=== PATIENT | female | born 1940 | race Caucasian/White ===

== ENCOUNTER 2016-08-10 05:38 | Day surgery (SDC) | payer MEDICARE, BC ==
[2016-07-28 17:34] VITALS: BMI 19.6
[2016-08-10] VITALS (16 sets, daily range): BP systolic 119–145; BP diastolic 48–65; PULSE 46–65; RESP 12–23; Ht 165.1 cm; Wt 54.1 kg
[~2016-08-10] VITALS: Ht 165.1 cm; Wt 54.1 kg
[~2016-08-10 05:38] MED LIST: ESTR2TAB PO; GABA300C PO; METO25TA7 PO; RIVA20TA PO
[2016-08-10] MEDS ORDERED: SOD CHLORIDE 0.9% 1,000 ML IV SCH (06:24)
--- NOTE | 2016-08-10 06:24 | HPN ---
Date/Time of Note Date/Time of Note DATE: 08/10/16 TIME: 06:23 Interval H&P Admission Note Pt. seen H&P reviewed: No system changes MARILIN MASON MD Aug 10, 2016 06:24
[2016-08-10] MEDS ORDERED: OXYCODONE/ACETAMINOPHEN (5/325) TAB PO PRN ×3 (06:30→09:00)
[2016-08-10] MEDS ORDERED: ONDANSETRON 4 MG INJ IV PRN ×2 (06:30→09:00)
[2016-08-10] MEDS ORDERED: PREM625 PO (06:43)
[2016-08-10] MEDS ORDERED: THROMBIN 5000 UNIT VIAL ONE (06:52)
[2016-08-10] MEDS ORDERED: GELATIN SIZE 100 SPONGE ONE (06:52)
[2016-08-10] MEDS ORDERED: POLYMYXIN/BACITRACIN 1L IRRIG ONE (06:52)
[2016-08-10] MEDS ORDERED: ROPIVACAINE 0.5 % 30 ML VIAL ONE ×3 (06:52→07:24)
[2016-08-10] MEDS ORDERED: SUCCINYLCHOLINE CHLORIDE 100 MG/5 ML SYG IV ONE (07:05)
[2016-08-10] MEDS ORDERED: ROCURONIUM 50 MG INJ ONE (07:05)
[2016-08-10] MEDS ORDERED: LIDOCAINE 2% (SDV) 5 ML INJ ONE (07:05)
[2016-08-10] MEDS ORDERED: MIDAZOLAM 1 MG/ML 2 ML INJ ONE (07:05)
[2016-08-10] MEDS ORDERED: PROPOFOL 20 ML ONE (07:05)
[2016-08-10] MEDS ORDERED: HYDROmorphONE 2 MG/ML SYG ONE (07:29)
[2016-08-10] MEDS ORDERED: METHYLENE BLUE 1% 10 ML INJ ONE (08:17)
[2016-08-10] MEDS ORDERED: POVIDONE IODINE 10% 28.4 GM OINT ONE (08:31)
[2016-08-10] MEDS ORDERED: ONDANSETRON 4 MG INJ ONE (08:44)
[2016-08-10] MEDS ORDERED: CEFAZOLIN 1 GM INJ ONE ×2 (08:44→09:15)
[2016-08-10] MEDS ORDERED: DEXAMETHASONE 4 MG/ML 1 ML INJ ONE (08:44)
[2016-08-10] MEDS ORDERED: PROCHLORPERAZINE 10 MG INJ IV PRN (09:00)
[2016-08-10] MEDS ORDERED: DIPHENHYDRAMINE 50 MG INJ IV PRN (09:00)
[2016-08-10] MEDS ORDERED: MEPERIDINE 25 MG INJ IV PRN (09:00)
[2016-08-10] MEDS ORDERED: HYDROmorphONE (0.2 MG/ML) 10ML SYG IV PRN (09:00)
[2016-08-10] MEDS ORDERED: FENTAnyl 50 MCG/ML VIAL IV PRN (09:00)
[2016-08-10] MEDS ORDERED: GLYCOPYRROLATE 1 MG INJ ONE (10:20)
[2016-08-10] MEDS ORDERED: NEOSTIGMINE 3 MG/3 ML SYRINGE ONE (10:20)
--- NOTE | 2016-08-10 12:07 | OPR ---
DATE OF OPERATION: 08/10/2016 PREOPERATIVE DIAGNOSES: 1. Left hallux valgus and bunion. 2. Left second clawtoe. POSTOPERATIVE DIAGNOSES: 1. Left hallux valgus and bunion. 2. Left second clawtoe. OPERATION PERFORMED: 1. Left bunionectomy with lateral release. 2. Proximal metatarsal crescentic osteotomy with 4.0 mm and pin fixation. 3. Medial capsulodesis. 4. Left second tenotomy capsulotomy of the metatarsophalangeal joint with Z-lengthening of the exte nsor digitorum longus. 5. Fusion of the left proximal interphalangeal joint with 0.062 K-wire. 6. Use of fluoroscopy to verify position and alignment of the toes and of the hardware. SURGEON: Marilin Mason MD DIGITAL SALES REPRESENTATIVE: Zeina Arshad MD ANESTHESIA: General with popliteal block. TOURNIQUET TIME: 76 minutes. DESCRIPTION OF PROCEDURE: The patient taken to the operating room, placed in supine position. Sati sfactory general anesthesia was administered after popliteal block was given. One gram Ancef given intravenously. The left foot was prepped and draped in usual manner. The great toe was approached first. A dorsomedial incision was made, dissection carried down to subcutaneous tissue. Neurovascu lar bundles were elevated dorsally and plantarly. A U-shaped capsular flap was made and tagged with 3-0 undyed Vicryl. A large bunion was noted. Using a reciprocating saw, the bunion was removed in line with the shaft. The bone was then saved to use for bone graft later. Under direct vision, a l ateral release was performed along the capsule and adductor tendon to the toe overcorrected, we free d up the sesamoids. A power rasp was used to smooth and contour the head and metatarsal neck until it was all smoothed. The wound was irrigated with antibiotic solution and a 4-0 black nylon was use d to close the skin temporarily. Using the fluoroscope, we marked the first metatarsocuneiform joint. A dorsal incision was made bret ving enough skin between each incision. Dissection was carried distally for several centimeters. T he extensor hallucis longus and brevis were retracted. The capsule was opened at the metatarsocunei form joint, 1 cm distal we circumferentially elevated the bone and marked it with methylene blue and made a rotational jim as well. At 2.5 cm distal to the metatarsocuneiform joint a drill hole was made with a guide pin from the 4.0 AO cannulated screw set. The hole was then drilled and then coun ternk for later use. The crescentic saw with the short and long blade was then used to perform a crescentic metatarsal osteotomy and the previously marked area 1 cm distal to the joint. The toe wa s then rotated 3 to 4 mm and fixed with 0.062 K-wire obliquely. Fluoroscopic view showed good posit ion and alignment of the metatarsal osteotomy with excellent correction of the intermetatarsal angle . Guide pin was reinserted for the 4.0 screw. The guide pin was checked in AP and lateral radiogra phs. It measured 26 mm screw. The screw was inserted. Excellent fixation was obtained. The osteot mariaelena was solid. The guide pin was removed and the wound was irrigated with antibiotic solution. Bon e graft was placed from the bunion had been removed along the lateral side of the osteotomy. The so ft tissue was then closed with a running 3-0 undyed Vicryl. Tourniquet was released. Bleeders were coagulated and reirrigated with antibiotic solution. A drill hole was made more proximal in the me tatarsal shaft at the bunion site using 0 FiberWire. The suture was passed through the drill hole a nd then weaved through the capsule with the toe slightly overcorrected. The capsule was tied. Exce llent fixation was obtained. Remaining capsule was closed with 3-0 PDS. The wound was irrigated wi th antibiotic solution again and then the skin was closed in both wounds with 5-0 black nylon interr upted. Attention was turned to the second toe MTP joint. A hockey stick incision was made obliquely in the second interspace. Extensor digitorum brevis was cut, the extensor digitorum longus was Z lengthen ed. A tenotomy was performed using care to avoid injuring neurovascular structures. An elliptical incision was made over the PIP joint. Dissection carried down through the skin and the tendon. The collateral ligaments were released on the proximal phalanx, head and neck. A small amount in the p roximal phalanx was resected. The middle phalanx corresponding articular surface was removed with a rongeur until there was good bleeding bone. A 0.062 threaded K-wire was drilled out the tip of the toe and then we compressed the PIP joint and drilled it across the PIP joint then put the toe in sl ight plantar flexion and valgus in the toe and the pin was drilled across the metatarsal head and th e metatarsal shaft. Fluoroscopic view showed good position and alignment. Some residual opening wa s left at the PIP joint. [place] was then inserted in the PIP joint to facilitate fusion of th e PIP joint. The skin was then closed with 5-0 black nylon and one 3-0 black nylon tied over a bols ter. The Z lengthening was repaired with 5-0 Prolene irrigated with antibiotic solution. Skin was closed with 5-0 black nylon. Throughout the procedure warm saline was used. The toe remained pink and had good capillary refill. Half percent ropivacaine was used to perform a saphenous nerve block. Compression dressing was then applied and patient was taken to recovery room elevated only on 1 pi llow to facilitate good circulation to the second toe. At the end of procedure sponge and needle co unt was correct. Patient tolerated procedure well. CARBONATING STONE CLEANER ORTHOPEDIC SURGEON: During the procedure, an assistant to the director orthopedic surgeon was used at my request. The assistant to the director helped with retraction. However, more importantly, the assistant to the director inserted t he K-wire and the screw in the great toe while I held the toe reduced. Also, inserted the pin in th e second toe while I held reduced. Without a skilled orthopedic surgeon assisting me, this could no t have been done; therefore, should compensate appropriately. Dictated By: MARILIN MASON MD RF/NTS Conf#: [id number] DID#: [id number] CC: ZEINA ARSHAD MD;*EndCC*
--- NOTE | 2016-08-10 12:52 | RADRPT ---
PROCEDURE: Intraoperative imaging of the left foot with fluoroscopy. CLINICAL INDICATION: Left foot pain. Intraoperative. TECHNIQUE: 7 images of the left foot were obtained in the operating room with an image intensifier . No radiologist was in attendance. COMPARISON: No prior study is available for comparison. FINDINGS: Images demonstrate surgical instruments overlying the left foot. There is osteotomy of the first me tatarsal and fixation with a screw and a pin. There is also a pin in the second toe and metatarsal. IMPRESSION: 1. Intraoperative imaging of the left foot. RPTAT: QQ .Ector Hayden MD, MD Date Time Electronically viewed and signed by .Ector Hayden MD, on 08/10/2016 12:52 .R/
== END 2016-08-10 13:43 | disposition home or self-care (01) ==
LOC: SDS 05:38
PROVIDERS: ATTEND Orthopaedic Surgery
DX: M20.12 Hallux valgus (acquired), left foot (principal); M21.612 Bunion of left foot; M20.5X2 Other deformities of toe(s) (acquired), left foot
CPT/HCPCS: 28285; 28295; 73630; C1713; J0330; J0690; J1100; J1170; J2250; J2405; J2710; J2795